=== PATIENT | female | born 1950 | race Caucasian/White ===

== ENCOUNTER 2017-10-30 11:59 | Emergency (ER) | payer MEDICARE ==
[2017-10-30 12:09] VITALS: RESP 17
--- NOTE | 2017-10-30 12:48 | XR ---
EXAMINATION TYPE: XR chest 2V DATE OF EXAM: 10/30/2017 COMPARISON: 03/06/2010 TECHNIQUE: PA and lateral views submitted. HISTORY: Dysrhythmia FINDINGS: There is hyperinflation. No pleural effusion or pneumothorax. Mild hypertrophic change of the spine. There is a mild hyperinflation. Arthropathy of the right AC joint.. IMPRESSION: 1. Correlate for COPD.
[2017-10-30 13:02] LABS: Basophils % (A) 1 %; Eosinophils # (A) 0.1 k/uL (0-0.7); Eosinophils % (A) 1 %; HGB 13.8 gm/dL (11.4-16.0); Lymphocytes % (A) 19 %; MCH 29.9 pg (25.0-35.0); MCHC 31.4 g/dL (31.0-37.0); MCV 95.2 fL (80.0-100.0); Mean Platelet Volume 7.7; Monocytes # (A) 0.4 k/uL (0-1.0); Monocytes % (A) 7 %; Neutrophils # (A) 3.7 k/uL (1.3-7.7); Neutrophils % (A) 70 %; Platelet Count 222 k/uL (150-450); RBC 4.62 m/uL (3.80-5.40); RDW 12.8 % (11.5-15.5); WBC 5.3 k/uL (3.8-10.6)
[2017-10-30 13:10] LABS: INR 1.8 (<1.2); Partial Thromboplastin Time 28.9 sec (22.0-30.0); Prothrombin Time 16.6 sec (9.0-12.0)
[2017-10-30 13:16] LABS: ALT 25 U/L (9-52); AST 28 U/L (14-36); Albumin 4.1 g/dL (3.5-5.0); Alkaline Phosphatase 85 U/L (38-126); Anion Gap 10 mmol/L; Blood Urea Nitrogen 21 mg/dL (7-17); Calcium 9.8 mg/dL (8.4-10.2); Carbon Dioxide 29 mmol/L (22-30); Chloride 104 mmol/L (98-107); Glucose 99 mg/dL (74-99); Magnesium 2.1 mg/dL (1.6-2.3); Potassium 4.5 mmol/L (3.5-5.1); Sodium 143 mmol/L (137-145); Total Bilirubin 0.5 mg/dL (0.2-1.3); Total Protein 7.2 g/dL (6.3-8.2)
[2017-10-30 13:23] LABS: Creatine Kinase 114 U/L (30-135)
[2017-10-30 13:37] LABS: Creatine Kinase MB 1.2 ng/mL (0.0-2.4); Troponin I <0.012 ng/mL (0.000-0.034)
--- NOTE | 2017-10-30 14:55 | ED ---
Arrhythmia/Palpitations HPI - General Chief Complaint: Arrhythmia/Palpitations Stated Complaint: A fib Time Seen by Provider: 10/30/17 12:03 Source: patient Mode of arrival: wheelchair Limitations: no limitations - History of Present Illness Initial Comments: 67 years O female presents with a palpitation with 24 hours she feels tired she fell she felt that at one time heart was going to fast and the other time it was irregular and then she felt that was too slow she does have history of atrial fibrillation she is not on any rate controlling agents at this point. Denies any chest pain denies any shortness of breath no pleuritic chest pain she been compliant with her medication she has been taking her Coumadin she has a history of DVT and PE and she also has a factor V Leiden as well and she also has a Testive filter in place. Denies any headaches no neck stiffness no blurred vision no weakness of upper or lower extremity - Related Data Home Medications Medication Instructions Recorded Confirmed Atorvastatin [Lipitor] 10 mg PO HS 10/30/17 10/30/17 Azelastine HCl [Astepro] 2 spray NASAL BID 10/30/17 10/30/17 Fluticasone Nasal [place] [Flonase 1 - 2 spray EA NOSTRIL BID PRN 10/30/17 Nasal [place]] Levothyroxine Sodium [Synthroid] 75 mcg PO DAILY 10/30/17 10/30/17 Pantoprazole Sodium [Protonix] 40 mg PO HS 10/30/17 10/30/17 Warfarin [Coumadin] 2.5 mg PO MOTH 10/30/17 10/30/17 Warfarin [Coumadin] 5 mg PO SUTUWEFRSA 10/30/17 10/30/17 metroNIDAZOLE [Metrolotion] 1 applic TOPICAL BID 10/30/17 10/30/17 Previous Rx's Medication Instructions Recorded Warfarin Sodium [Coumadin] 3 mg PO DAILY #90 tab 10/30/17 Allergies Allergy/AdvReac Type Severity Reaction Status Date / Time latex Allergy Unknown Verified 10/30/17 12:38 Penicillins Allergy Unknown Verified 10/30/17 12:38 Sulfa (Sulfonamide Allergy Unknown Verified 10/30/17 12:38 Antibiotics) Review of Systems ROS Statement: Those systems with pertinent positive or pertinent negative responses have been documented in the HPI. ROS Other: All systems not noted in ROS Statement are negative. Past Medical History Past Medical History: Atrial Fibrillation, Hyperlipidemia Additional Past Medical History / Comment(s): blood clots, History of Any Multi-Drug Resistant Organisms: None Reported Past Surgical History: Appendectomy Additional Past Surgical History / Comment(s): green field filter Past Psychological History: No Psychological Hx Reported Smoking Status: Former smoker Past Alcohol Use History: None Reported Past Drug Use History: None Reported General Exam - General Exam Comments Initial Comments: General: The patient is awake and alert, in no distress, and does not appear acutely ill. Skin: Skin is warm and dry and no rashes or lesions are noted. Eye: Pupils are equal, round and reactive to light, extra-ocular movements are intact; there is normal conjunctiva bilaterally. Ears, nose, mouth and throat: There are moist mucous membranes and no oral lesions. Neck: The neck is supple, there is no tenderness or JVD. Cardiovascular: It's like she does skip a beat but no murmurs noticed Respiratory: To auscultation bilateral, exam consistent abdominal COPD Gastrointestinal: Soft, non-distended, non-tender abdomen without masses or organomegaly noted. There is no rebound or guarding present. Bowel sounds are unremarkable. Back: There is no tenderness to palpation in the midline. There is no obvious deformity. Musculoskeletal: Normal ROM, no tenderness, There is no pedal edema. There is no calf tenderness or swelling. No cords were appreciated. Neurological: CN II-XII intact, Cranial nerves III through XII are intact. There are no obvious motor or sensory deficits. Coordination appears grossly intact. Speech is normal. Psychiatric: Cooperative, appropriate mood & affect, normal judgment. Limitations: no limitations Course Vital Signs 10/30/17 10/30/17 12:04 13:45 Temperature 97.7 F Pulse Rate 62 54 L Respiratory 17 17 Rate Blood Pressure 154/69 154/69 O2 Sat by Pulse 100 96 Oximetry Patient was reassessed at 1445 CBC, INR, troponin, compressive metabolic panel, TSH, chest x-ray are within normal range with some mom premature supraventricular complexes my plan to refer her to cardiology to rule out any ischemic reasons she is a candidate of any food rate controlling agents since her heart rate is hovering around 60 but she would definitely benefit from mom evaluation of the coronaries. She be seen a tax agent as outpatient and she was advised to come back if the symptoms get worse or she gets chest pain or shortness of breath. [email or web address]oumadinCoumadindoseslightlyandthenfollowwit hthefamilydoctorfortheINheckedand[facility] EKG Findings - EKG Comments: EKG Findings:: Him EKG is a sinus rhythm with a premature supraventricular complexes ventricular rate is 62 MD interval is 154 QRS duration is 86 QT/QTc is [id number] review of this EKG does not reveal any ST elevation or ST depression Medical Decision Making - Lab Data Result diagrams: 10/30/17 12:15 10/30/17 12:15 Lab Results 10/30/17 10/30/17 10/30/17 Range/Units 12:15 12:15 12:15 WBC 5.3 (3.8-10.6) k/uL RBC 4.62 (3.80-5.40) m/uL Hgb 13.8 (11.4-16.0) gm/dL Hct 44.0 (34.0-46.0) % MCV 95.2 (80.0-100.0) fL MCH 29.9 (25.0-35.0) pg MCHC 31.4 (31.0-37.0) g/dL RDW 12.8 (11.5-15.5) % Plt Count 222 (150-450) k/uL Neutrophils % 70 % Lymphocytes % 19 % Monocytes % 7 % Eosinophils % 1 % Basophils % 1 % Neutrophils # 3.7 (1.3-7.7) k/uL Lymphocytes # 1.0 (1.0-4.8) k/uL Monocytes # 0.4 (0-1.0) k/uL Eosinophils # 0.1 (0-0.7) k/uL Basophils # 0.0 (0-0.2) k/uL PT (9.0-12.0) sec INR (<1.2) APTT (22.0-30.0) sec Sodium 143 (137-145) mmol/L Potassium 4.5 (3.5-5.1) mmol/L Chloride 104 (98-107) mmol/L Carbon Dioxide 29 (22-30) mmol/L Anion Gap 10 mmol/L BUN 21 H (7-17) mg/dL Creatinine 0.90 (0.52-1.04) mg/dL Est GFR (MDRD) Af Amer >60 (>60 ml/min/1.73 sqM) Est GFR (MDRD) Non-Af >60 (>60 ml/min/1.73 sqM) Glucose 99 (74-99) mg/dL Calcium 9.8 (8.4-10.2) mg/dL Magnesium 2.1 (1.6-2.3) mg/dL Total Bilirubin 0.5 (0.2-1.3) mg/dL AST 28 (14-36) U/L ALT 25 (9-52) U/L Alkaline Phosphatase 85 (38-126) U/L Total Creatine Kinase 114 (30-135) U/L CK-MB (CK-2) 1.2 (0.0-2.4) ng/mL CK-MB (CK-2) Rel Index 1.1 Troponin I <0.012 (0.000-0.034) ng/mL Total Protein 7.2 (6.3-8.2) g/dL Albumin 4.1 (3.5-5.0) g/dL TSH (0.465-4.680) mIU/L 10/30/17 10/30/17 Range/Units 12:15 12:15 WBC (3.8-10.6) k/uL RBC (3.80-5.40) m/uL Hgb (11.4-16.0) gm/dL Hct (34.0-46.0) % MCV (80.0-100.0) fL MCH (25.0-35.0) pg MCHC (31.0-37.0) g/dL RDW (11.5-15.5) % Plt Count (150-450) k/uL Neutrophils % % Lymphocytes % % Monocytes % % Eosinophils % % Basophils % % Neutrophils # (1.3-7.7) k/uL Lymphocytes # (1.0-4.8) k/uL Monocytes # (0-1.0) k/uL Eosinophils # (0-0.7) k/uL Basophils # (0-0.2) k/uL PT 16.6 H (9.0-12.0) sec INR 1.8 H (<1.2) APTT 28.9 (22.0-30.0) sec Sodium (137-145) mmol/L Potassium (3.5-5.1) mmol/L Chloride (98-107) mmol/L Carbon Dioxide (22-30) mmol/L Anion Gap mmol/L BUN (7-17) mg/dL Creatinine (0.52-1.04) mg/dL Est GFR (MDRD) Af Amer (>60 ml/min/1.73 sqM) Est GFR (MDRD) Non-Af (>60 ml/min/1.73 sqM) Glucose (74-99) mg/dL Calcium (8.4-10.2) mg/dL Magnesium (1.6-2.3) mg/dL Total Bilirubin (0.2-1.3) mg/dL AST (14-36) U/L ALT (9-52) U/L Alkaline Phosphatase (38-126) U/L Total Creatine Kinase (30-135) U/L CK-MB (CK-2) (0.0-2.4) ng/mL CK-MB (CK-2) Rel Index Troponin I (0.000-0.034) ng/mL Total Protein (6.3-8.2) g/dL Albumin (3.5-5.0) g/dL TSH 0.377 L (0.465-4.680) mIU/L Disposition Clinical Impression: Arrhythmia, Bradycardia Disposition: HOME SELF-CARE Condition: Good Instructions: Palpitations (ED) Prescriptions: Warfarin Sodium [Coumadin] 3 mg PO DAILY #90 tab Referrals: Ishaan Moreno MD [Primary Care Provider] - 1-2 days Angie Calderon MD [STAFF PHYSICIAN] - 1-2 days
[2017-10-30 15:18] VITALS: BP 141/72; PULSE 64; TEMP 97.8
== END 2017-10-30 15:17 | disposition home or self-care (01) ==
LOC: EC 11:59
DX: I49.9 Cardiac arrhythmia, unspecified (principal); I48.91 Unspecified atrial fibrillation; E78.5 Hyperlipidemia, unspecified; Z86.718 Personal history of other venous thrombosis and embolism; Z86.711 Personal history of pulmonary embolism; Z87.891 Personal history of nicotine dependence; Z88.0 Allergy status to penicillin; Z88.2 Allergy status to sulfonamides; Z91.040 Latex allergy status; Z95.828 Presence of other vascular implants and grafts; Z79.01 Long term (current) use of anticoagulants; Z79.899 Other long term (current) drug therapy
CPT/HCPCS: 36415; 71046; 80053; 82550; 82553; 83735; 84443; 84484; 85025; 85610; 85730; 93005; 99285